=== PATIENT | male | born 1950 | race Caucasian/White ===

== ENCOUNTER → 2017-02-02 | Outpatient (CLI) | payer OTHER ==
[~2017-02-02] MED LIST: ASPI81TA28 PO; DILT120C99 PO; FENO200C6 PO; FLUO40CA8 PO; GLC500 PO; GLIM1TAB2 PO; IBUP-103 PO; LORA10CA2 PO; METF1TAB53 PO; TRAZ50TA35 PO
[2017-02-02 13:41] LABS: ESTIMATED AVERAGE GLUCOSE 160 mg/dl; HA1C FLAG Normal (Normal)
[2017-02-02 13:43] LABS: CALCIUM 9.2 mg/dl (8.5-10.1)
[2017-02-02 13:51] LABS: RATIO 12.7 mcg/mg (0-30.0)
[2017-02-02 13:53] LABS: ALT/SGPT 25 U/L (12-78); BLOOD UREA NITROGEN 28 mg/dl (7-18); BUN/CREATININE RATIO 17.3 (10-20); CARBON DIOXIDE 25 mmol/L (21-32); CHLORIDE 106 mmol/L (98-107); CHOLESTEROL 166 mg/dl (0-200); GLUCOSE 155 mg/dl (70-99); POTASSIUM 4.3 mmol/L (3.5-5.1); SODIUM 141 mmol/L (136-145); TRIGLYCERIDES 256 mg/dl (0-150); VERY LOW DENSITY LIPOPROT CALC 51 mg/dl
[2017-02-02 13:58] LABS: ALB/GLOB RATIO 1.2 (0.9-2); ALKALINE PHOSPHATASE 44 U/L (45-117); AST/SGOT 17 U/L (15-37); HDL CHOLESTEROL 41 mg/dl; LDL CHOLESTEROL CALCULATED 74 mg/dl; PROSTATE SPECIFIC ANTIGEN 0.229 ng/ml (0.000-4.000)
== END | disposition home or self-care (01) ==
LOC: C.LABMFLN 08:25
PROVIDERS: ATTEND Family Medicine
DX: N20.0 Calculus of kidney (principal); E78.00 Pure hypercholesterolemia, unspecified; I10 Essential (primary) hypertension

== ENCOUNTER → 2017-03-03 | Outpatient (CLI) | payer OTHER ==
--- NOTE | 2017-03-03 10:21 | DIAGNOSTIC IMAGING REPORT ---
[facility]UB CLINICAL HISTORY: Nephrolithiasis. FINDINGS: 3 AP supine abdominal radiograph are compared to study dated 02/25/2016 and correlated with abdominal CT dated 03/02/2016. There is a nonobstructed abdominal bowel gas pattern. Moderate to severe colonic fecal retention is observed. A 6 mm calcification projects over the lower pole of the right kidney. No additional calcifications are seen projecting over the left kidney or along the course of the ureters. Numerous pelvic phleboliths are observed. The skeletal structures are osteopenic. Mild lumbosacral spondylosis is observed. The lung bases are clear as imaged. IMPRESSION: 1. Moderate to severe constipation. 2. A nonobstructing right renal calculus is identified. 3. No calcifications are seen projecting over the left kidney or along the course of the ureters. Electronically signed by: See Dawson M.D. 03/03/2017 10:20 AM Dictated Date/Time: 03/03/2017 10:18 AM
== END | disposition home or self-care (01) ==
LOC: C.RAD 09:48
PROVIDERS: ATTEND Urology
DX: N20.0 Calculus of kidney (principal); K59.00 Constipation, unspecified

== ENCOUNTER → 2017-06-30 | Outpatient (CLI) | payer OTHER ==
[2017-06-30 13:40] LABS: ESTIMATED AVERAGE GLUCOSE 163 mg/dl; HA1C FLAG Normal (Normal)
[2017-06-30 14:20] LABS: ALT/SGPT 25 U/L (12-78); BLOOD UREA NITROGEN 28 mg/dl (7-18); BUN/CREATININE RATIO 17.5 (10-20); CALCIUM 9.1 mg/dl (8.5-10.1); CARBON DIOXIDE 25 mmol/L (21-32); CHLORIDE 105 mmol/L (98-107); CHOLESTEROL 192 mg/dl (0-200); GLUCOSE 174 mg/dl (70-99); POTASSIUM 4.1 mmol/L (3.5-5.1); SODIUM 138 mmol/L (136-145)
[2017-06-30 14:24] LABS: ALB/GLOB RATIO 1.1 (0.9-2); ALKALINE PHOSPHATASE 49 U/L (45-117); AST/SGOT 17 U/L (15-37); CHOLESTEROL/HDL RATIO 6.6; HDL CHOLESTEROL 29 mg/dl; LDL CHOLESTEROL CALCULATED 84 mg/dl; TRIGLYCERIDES 394 mg/dl (0-150); VERY LOW DENSITY LIPOPROT CALC 79 mg/dl
== END | disposition home or self-care (01) ==
LOC: C.LABMFLN 09:16
PROVIDERS: ATTEND Family Medicine
DX: E11.9 Type 2 diabetes mellitus without complications (principal); E78.00 Pure hypercholesterolemia, unspecified; I10 Essential (primary) hypertension

== ENCOUNTER → 2017-12-25 | Outpatient (CLI) | payer BC ==
[2017-12-25 12:53] LABS: HEMOGLOBIN A1C 7.2 % (4.5-5.6)
[2017-12-25 16:13] LABS: ALT/SGPT 26 U/L (12-78); BLOOD UREA NITROGEN 27 mg/dl (7-18); CALCIUM 9.1 mg/dl (8.5-10.1); CARBON DIOXIDE 26 mmol/L (21-32); CHOLESTEROL 154 mg/dl (0-200); GLUCOSE 168 mg/dl (70-99); POTASSIUM 4.2 mmol/L (3.5-5.1); SODIUM 137 mmol/L (136-145)
[2017-12-25 16:16] LABS: ALKALINE PHOSPHATASE 59 U/L (45-117); AST/SGOT 14 U/L (15-37); LDL CHOLESTEROL CALCULATED 71 mg/dl; TOTAL PROTEIN 7.5 gm/dl (6.4-8.2)
== END | disposition home or self-care (01) ==
LOC: C.LABMFLN 07:26
PROVIDERS: ATTEND Family Medicine
DX: E11.9 Type 2 diabetes mellitus without complications (principal); E78.00 Pure hypercholesterolemia, unspecified; I10 Essential (primary) hypertension

== ENCOUNTER → 2018-05-07 | Outpatient (CLI) | payer BC ==
[2018-05-07 13:42] LABS: HEMOGLOBIN A1C 7.5 % (4.5-5.6)
[2018-05-07 14:00] LABS: ALBUMIN 3.8 gm/dl (3.4-5.0); ALKALINE PHOSPHATASE 43 U/L (45-117); ALT/SGPT 23 U/L (12-78); AST/SGOT 16 U/L (15-37); BLOOD UREA NITROGEN 27 mg/dl (7-18); CARBON DIOXIDE 24 mmol/L (21-32); CHOLESTEROL 160 mg/dl (0-200); CREATININE 1.52 mg/dl (0.60-1.40); GLUCOSE 164 mg/dl (70-99); LDL CHOLESTEROL CALCULATED 68 mg/dl; POTASSIUM 3.9 mmol/L (3.5-5.1); SODIUM 138 mmol/L (136-145); TOTAL PROTEIN 7.4 gm/dl (6.4-8.2)
== END | disposition home or self-care (01) ==
LOC: C.LABMFLN 08:05
PROVIDERS: ATTEND Family Medicine
DX: Z12.5 Encounter for screening for malignant neoplasm of prostate (principal); E78.00 Pure hypercholesterolemia, unspecified; I10 Essential (primary) hypertension; E11.22 Type 2 diabetes mellitus with diabetic chronic kidney disease